=== PATIENT | female | born 1990 | race Hispanic/Latino ===

== ENCOUNTER 2017-10-19 02:39 | Emergency (ER) | payer OTHER ==
[2017-10-19 02:54] VITALS: BMI 28.0
[2017-10-19 02:56] VITALS: BP 116/76; RESP 16; TEMP 98.2; O2SAT 96
--- NOTE | 2017-10-19 04:15 | ED PDOC ---
HPI: Chest Pain Time Seen by Provider: 10/19/17 03:15 Chief Complaint (Nursing): Chest Pain Chief Complaint (Provider): Chest Pain History Per: Patient History/Exam Limitations: no limitations Onset/Duration Of Symptoms: Hrs (x8), Intermittent Episodes Current Symptoms Are (Timing): Better Additional Complaint(s): 26 year old female with past medical history of anxiety, presents to ED with complaints of left upper chest pain and symptoms of anxiety x8 hours. Patient states onset was while she was out drinking and notes she only drank 3 glasses of wine. Notes that she has experienced this pain twice in the last year and admits that she has been stressed at work and has difficulty sleeping. (-) dizziness, headache, leg pain, trauma, fever, cough, exertion, radiation of pain , SOB, or diaphoresis. PCP: Dr. Sy Past Medical History Reviewed: Historical Data, Nursing Documentation, Vital Signs Vital Signs: Last Vital Signs Temp 98.2 F 10/19/17 02:54 Pulse 69 10/19/17 04:22 Resp 16 10/19/17 02:54 BP 116/76 10/19/17 02:54 Pulse Ox 96 10/19/17 04:22 - Medical History PMH: Anxiety - Surgical History Surgical History: No Surg Hx - Family History Family History: States: [place], Diabetes - Living Arrangements Living Arrangements: With Friends/Others - Social History Current smoker - smoking cessation education provided: No Ex-Smoker (has not smoked in the last 12 months): No Alcohol: Social Drugs: Denies - Home Medications Home Medications: Ambulatory Orders Medication Instructions Recorded Amphetamine Salt Combination 1 tab PO DAILY 07/16/16 [Adderall] Clonazepam [Klonopin] 1 tab PO PRN PRN 07/16/16 - Allergies Allergies/Adverse Reactions: Allergies Allergy/AdvReac Type Severity Reaction Status Date / Time No Known Allergies Allergy Verified 10/19/17 02:53 SIMONE Risk Score for UA/NSTEMI - SIMONE Risk Score Age > 64: NO 3 or more CAD Risk Factors: NO Known CAD (Stenosis greater than 50%): NO Severe Angina: NO SIMONE Score: 0 Risk %: 5% Curb-65 Severity Score - CURB-65 Severity Score Confusion: No Respiratory Rate greater than/equal to 30: No Systolic BP <90 or Diastolic BP less than/equal 60mmHg: No Age >64: No Curb-65 Score: 0 Percentage 30-day mortality: 0.6% Wells Criteria for PE - Wells Criteria for Pulmonary Embolism Clinical Signs and Symptoms of DVT: No P.E is #1 Diagnosis, or Equally Likely: No Heart Rate >100: No Immobilization at least 3 days;Surgery previous 4 weeks: No Previous, objectively diagnosed PE or DVT: No Hemoptysis: No Malignancy w/treatment within 6 months, or palliative: No Total Score: 0 Review of Systems ROS Statement: Except As Marked, All Systems Reviewed And Found Negative Constitutional: Negative for: Fever Cardiovascular: Positive for: Chest Pain Respiratory: Negative for: Cough, Shortness of Breath Musculoskeletal: Negative for: Leg Pain Neurological: Negative for: Headache, Dizziness Psych: Positive for: Anxiety Physical Exam - Reviewed Nursing Documentation Reviewed: Yes Vital Signs Reviewed: Yes - Physical Exam Appears: Positive for: Non-toxic, No Acute Distress (smells of alcohol) Skin: Positive for: Normal Color, Warm, Dry Eye Exam: Positive for: Normal appearance ENT: Positive for: Normal ENT Inspection Neck: Positive for: Normal, Painless ROM, Supple Cardiovascular/Chest: Positive for: Regular Rate, Rhythm. Negative for: Murmur Respiratory: Positive for: Normal Breath Sounds. Negative for: Respiratory Distress Gastrointestinal/Abdominal: Positive for: Normal Exam, Soft. Negative for: Tenderness Back: Positive for: Normal Inspection Extremity: Positive for: Normal ROM Neurologic/Psych: Positive for: Alert, Oriented - ECG ECG Rhythm: Positive for: Sinus Rhythm Rate: 98 O2 Sat by Pulse Oximetry: 96 (RA) Pulse Ox Interpretation: Normal - Radiology X-Ray: Interpreted by Me X-Ray Interpretation: No Acute Disease Medical Decision Making Medical Decision Makin Initial impression: Initial plan: * CXR * EKG * Ativan 1 mg PO On reevaluation, patient is resting comfortably in bed in no acute distress, breathing easy and unlabored, speaking in full sentences. Patient states that she has a history of anxiety and has taken Xanax in the past, she is requesting for a dose of medicine to control her anxiety here in the emergency room. Patient given a dose of Ativan 1 mg by mouth.Based on history, exam and diagnostic results plan will be for outpatient follow-up with PMD. Patient instructed to follow up with primary care physician in 1-2 days without fail. Advised to take medication as prescribed. Return to the emergency room at any time for any new or worsening symptoms. Patient states she fully agrees with and understands discharge instructions. States that she agrees with the plan and disposition. Verbalized and repeated discharge instructions and plan. I have given the patient opportunity to ask any additional questions. Scribe Attestation: Documented by Gita Faulkner acting as a scribe for Kellee Tesfaye PA-C. Scribe Attestation: All medical record entries made by the Scribe were at my direction and personally dictated by me. I have reviewed the chart and agree that the record accurately reflects my personal performance of the history, physical exam, medical decision making, and the department course for this patient. I have also personally directed, reviewed, and agree with the discharge instructions and disposition. Disposition - Clinical Impression Clinical Impression: Chest pain, Anxiety - Patient ED Disposition Is Patient to be Admitted: No Counseled Patient/Family Regarding: Studies Performed, Diagnosis, Need For Followup - Disposition Disposition: Routine/Home Disposition Time: 04:41 Condition: STABLE Additional Instructions: Thank you for letting us take care of you today. You were treated for chest pain , anxiety. The emergency medical care you received today was directed at your acute symptoms. Return to the Emergency Department if your symptoms worsen, do not improve, or if you have any other problems. Please contact your doctor in 2 days for re-evaluation and follow up. Bring any paperwork you were given at discharge with you along with any medications you are taking to your follow up visit. Our treatment cannot replace ongoing medical care by a primary care provider (PCP) outside of the emergency department. Thank you for allowing the [facility] team to be part of your care today. Instructions: Chest Pain (ED), Anxiety (ED) Forms: [employer] (Yakut) Print Language: ROMANIAN - PA / CATERING COOK / Resident Statement /DO has reviewed & agrees with the documentation as recorded.
[2017-10-19 04:40] VITALS: PULSE 98
--- NOTE | 2017-10-19 09:45 | RAD ---
HISTORY: pain COMPARISON: Chest radiograph 11/04/2016. TECHNIQUE: Chest PA and lateral FINDINGS: LUNGS: No active pulmonary disease. PLEURA: No significant pleural effusion identified. No pneumothorax apparent. CARDIOVASCULAR: Normal. OSSEOUS STRUCTURES: No significant abnormalities. VISUALIZED UPPER ABDOMEN: Normal. OTHER FINDINGS: None. IMPRESSION: No active disease.
== END 2017-10-19 04:56 | disposition home or self-care (01) ==
LOC: H.ER 02:39
DX: R07.89 Other chest pain (principal); F41.9 Anxiety disorder, unspecified